=== PATIENT | female | born 1975 | race African-American/Black ===

== ENCOUNTER 2018-03-17 23:33 | Emergency (ER) | payer OTHER ==
[~2018-03-17] VITALS: Ht 160 cm; Wt 83.1 kg
[2018-03-17 23:42] VITALS: Ht 160 cm; Wt 83.1 kg
[2018-03-18 01:08] VITALS: BP 135/88
== END 2018-03-18 01:08 | disposition home or self-care (01) ==
LOC: ED 23:33
DX: S16.1XXA Strain of muscle, fascia and tendon at neck level, initial encounter (principal); S29.012A Strain of muscle and tendon of back wall of thorax, initial encounter; V43.52XA Car driver injured in collision with other type car in traffic accident, initial encounter; Y93.I9 Activity, other involving external motion; Y92.89 Other specified places as the place of occurrence of the external cause; Y99.8 Other external cause status
CPT/HCPCS: J1885